=== PATIENT | male | born 1955 | race African-American/Black ===

== ENCOUNTER → 2018-06-18 | Outpatient (CLI) | payer MEDICARE, OTHER ==
[2018-06-02 14:18] VITALS: BP 130/88
[~2018-06-18] MED LIST: AMLO2.5T5 PO; AMLO5TAB10 PO; LEVE500T56 PO; LORA0.5T PO; TAMS0.4C97 PO
== END | disposition home or self-care (01) ==
LOC: OPS 12:32
PROVIDERS: ATTEND Internal Medicine Infectious Disease
DX: A41.9 Sepsis, unspecified organism (principal); I10 Essential (primary) hypertension; J44.9 Chronic obstructive pulmonary disease, unspecified
CPT/HCPCS: G0463

== ENCOUNTER → 2018-06-26 | Outpatient (CLI) | payer MEDICARE, OTHER ==
[2018-06-02 14:18] VITALS: BP 130/88
--- NOTE | 2018-06-26 17:20 | EEG ---
DATE OF SERVICE: 06/26/2018 ELECTROENCEPHALOGRAM NUMBER: [id number] OBJECTIVE: This 63-year-old male patient had a seizure and mental status changes. EEG was requested to evaluate seizure activity. METHODS: Twenty electrodes were applied according to the international 10-20 electrode placement system. EKG monitoring, hyperventilation, intermittent photic stimulation, monopolar and bipolar montages are routinely utilized. The record was obtained on a digital system with video monitoring. FINDINGS: 1. Background: The patient was recorded in the awake and drowsy states. No actual sleep state was recorded. The overall background amplitude is 5-15 microvolts. A posterior dominant rhythm of 8-10 Hz is observed. 2. Abnormalities: No specific epileptiform discharge or electrographic seizure is seen. No focal or diffuse slowing. 3. Activation: Hyperventilation was performed with good efforts and normal response. Intermittent photic stimulation was performed with photic driving. Photoparoxysmal response noted. IMPRESSION: This EEG is a borderline study for the awake and drowsy states. No actual sleep state was recorded. Photoparoxysmal response noted. No focal, lateralizing, specific epileptiform discharge or electrographic seizure is seen. Compared with the previous EEG, this EEG is much improved. STEFANO MEHTA MD DR: CHRISTINE/[place] JOB#: [id number] / [id number] ALYSON
== END | disposition home or self-care (01) ==
LOC: RT 09:09
PROVIDERS: ATTEND Psychiatry & Neurology Neurology
DX: R56.9 Unspecified convulsions (principal)
CPT/HCPCS: 95816

== ENCOUNTER → 2019-03-18 | Outpatient (CLI) | payer MEDICARE, OTHER ==
[2018-06-02 14:18] VITALS: BP 130/88
[2019-03-18 11:16] LABS: ALBUMIN 3.7 g/dL (3.4-5.0); ALBUMIN/GLOBULIN RATIO 0.8 (1.0-1.7); GFR 90.7; POTASSIUM 3.9 mmol/L (3.5-5.1); TOTAL BILIRUBIN 0.9 mg/dL (0.2-1.0); TOTAL PROTEIN 8.5 g/dL (6.4-8.2)
== END | disposition home or self-care (01) ==
LOC: LAB 10:27
PROVIDERS: ATTEND Psychiatry & Neurology Neurology
DX: G04.90 Encephalitis and encephalomyelitis, unspecified (principal)
CPT/HCPCS: 36415; 80053